=== PATIENT | female | born 1965 | race Caucasian/White ===

== ENCOUNTER 2018-06-09 17:36 | Emergency (ER) | payer MEDICARE, OTHER ==
[2018-06-09 18:50] LABS: Basophils # (A) 0.1 k/uL (0-0.2); Basophils % (A) 1 %; Eosinophils # (A) 0.3 k/uL (0-0.7); Eosinophils % (A) 5 %; HCT 40.1 % (34.0-46.0); HGB 13.2 gm/dL (11.4-16.0); Lymphocytes # (A) 2.2 k/uL (1.0-4.8); Lymphocytes % (A) 33 %; MCH 29.4 pg (25.0-35.0); MCHC 32.9 g/dL (31.0-37.0); MCV 89.1 fL (80.0-100.0); Mean Platelet Volume 9.4; Monocytes # (A) 0.6 k/uL (0-1.0); Monocytes % (A) 8 %; Neutrophils # (A) 3.3 k/uL (1.3-7.7); Neutrophils % (A) 50 %; Platelet Count 275 k/uL (150-450); RDW 13.1 % (11.5-15.5); WBC 6.7 k/uL (3.8-10.6)
[2018-06-09 18:56] LABS: ALT 141 U/L (9-52); AST 103 U/L (14-36); Albumin 4.1 g/dL (3.5-5.0); Alkaline Phosphatase 129 U/L (38-126); Anion Gap 11 mmol/L; Blood Urea Nitrogen 15 mg/dL (7-17); Calcium 9.4 mg/dL (8.4-10.2); Carbon Dioxide 25 mmol/L (22-30); Chloride 104 mmol/L (98-107); Glucose 106 mg/dL (74-99); Magnesium 1.7 mg/dL (1.6-2.3); Potassium 4.2 mmol/L (3.5-5.1); Sodium 140 mmol/L (137-145); Total Bilirubin 0.7 mg/dL (0.2-1.3); Total Protein 7.5 g/dL (6.3-8.2)
[2018-06-09 19:00] LABS: Creatine Kinase 99 U/L (30-135)
[2018-06-09 19:13] LABS: Creatine Kinase MB 1.6 ng/mL (0.0-2.4); Troponin I <0.012 ng/mL (0.000-0.034)
[2018-06-09 19:16] LABS: Partial Thromboplastin Time 21.4 sec (22.0-30.0)
[2018-06-09] MEDS ORDERED: ASPIRIN 81 MG PO STA (20:27)
--- NOTE | 2018-06-09 20:31 | ED ---
General Adult HPI - General Chief complaint: Chest Pain Stated complaint: Chest pain Time Seen by Provider: 06/09/18 19:58 Source: patient, family, RN notes reviewed Mode of arrival: ambulatory Limitations: no limitations - History of Present Illness Initial comments: Patient is a pleasant 52-year-old female presenting to the emergency Department with complaints of chest discomfort. Patient was moving boxes and other chores , mild to moderate exertion when she started expressing chest discomfort. Onset was around 4:30 and lasted around an hour. Discomfort was severe. Discomfort is now resolved. Discomfort feels like a sharp. Discomfort is central chest. There may have been some mild dyspnea. Patient was nauseated earlier which has also resolved. No diaphoresis. No history of similar symptoms previously. Patient did take a baby aspirin at home. - Related Data Home Medications Medication Instructions Recorded Confirmed Aspirin EC [Ecotrin Low Dose] 81 mg PO DAILY 06/09/18 06/09/18 Cholecalciferol [Vitamin D3] 1,000 unit PO DAILY 06/09/18 06/09/18 Cyclobenzaprine [Flexeril] 10 mg PO HS 06/09/18 06/09/18 Gabapentin [Neurontin] 300 mg PO HS 06/09/18 06/09/18 Ibuprofen [Motrin] 800 mg PO BID 06/09/18 06/09/18 Losartan-Hctz 50-12.5 mg [Hyzaar 1 tab PO DAILY 06/09/18 06/09/18 50-12.5] Multivitamins, Thera [Multivitamin 1 tab PO DAILY 06/09/18 06/09/18 (formulary)] Omeprazole 20 mg PO DAILY 06/09/18 06/09/18 Sulfamethox-Tmp 800-160Mg [Bactrim 1 tab PO Q12HR 06/09/18 06/09/18 DS 800-160 mg] Vitamin B Complex 1 cap PO DAILY 06/09/18 06/09/18 oxyCODONE-APAP 10-325MG [Percocet 1 tab PO QID PRN 06/09/18 06/09/18 10-325 mg] Allergies Allergy/AdvReac Type Severity Reaction Status Date / Time No Known Allergies Allergy Verified 06/09/18 19:16 Review of Systems ROS Statement: Those systems with pertinent positive or pertinent negative responses have been documented in the HPI. ROS Other: All systems not noted in ROS Statement are negative. Constitutional: Denies: fever Eyes: Denies: eye pain ENT: Denies: ear pain Respiratory: Reports: dyspnea Cardiovascular: Reports: chest pain Endocrine: Denies: fatigue Gastrointestinal: Denies: abdominal pain Genitourinary: Denies: dysuria Musculoskeletal: Denies: back pain Skin: Denies: rash Neurological: Denies: weakness Past Medical History Past Medical History: No Reported History, Hypertension Additional Past Medical History / Comment(s): degenerative disc. herniated disc, History of Any Multi-Drug Resistant Organisms: None Reported Past Surgical History: Appendectomy Past Psychological History: No Psychological Hx Reported Smoking Status: Never smoker Past Alcohol Use History: Rare Past Drug Use History: None Reported General Exam Limitations: no limitations General appearance: alert, in no apparent distress Head exam: Present: atraumatic Eye exam: Present: normal appearance, PERRL ENT exam: Present: normal oropharynx Neck exam: Present: normal inspection Respiratory exam: Present: normal lung sounds bilaterally. Absent: chest wall tenderness Cardiovascular Exam: Present: regular rate, normal rhythm Expanded Peripheral pulses: 2+: Radial (R), Radial (L), Dorsalis Pedis (R), Dorsalis Pedis (L) GI/Abdominal exam: Present: soft. Absent: tenderness Extremities exam: Present: normal inspection. Absent: pedal edema, calf tenderness Neurological exam: Present: alert Psychiatric exam: Present: normal affect, normal mood Skin exam: Present: normal color Course Vital Signs 06/09/18 06/09/18 06/09/18 17:59 19:43 20:38 Temperature 98.3 F Pulse Rate 100 98 84 Respiratory 18 16 16 Rate Blood Pressure 131/85 141/75 149/89 O2 Sat by Pulse 100 99 99 Oximetry 06/09/18 21:13 Temperature Pulse Rate 83 Respiratory 16 Rate Blood Pressure 112/84 O2 Sat by Pulse 96 Oximetry EKG Findings - EKG Comments: EKG Findings:: EKG shows normal sinus rhythm 99. HI 122. QRS 100. QT 360. QTC 462. Normal axis. Normal QRS. No acute ST change. Medical Decision Making - Medical Decision Making Patient reevaluated and remained symptom-free. Patient is requesting discharge. Case was discussed in detail with Dr. Luke who agrees with recommendation for admission. Patient is updated regarding this. Patient is recommended admission. Patient is explained limitations of tests results at this point. Patient does demonstrate understanding. Patient is made aware that heart attack has not been ruled out at this point as read as risk for heart attack in the near future and other disease process. Despite this patient does not want to stay in the hospital. Patient will leave AGAINST MEDICAL ADVICE. Patient is agreeable to follow-up with Dr. Luke. In addition patient is made aware of elevation of liver enzymes and need for follow -up with this as well. - Lab Data Result diagrams: 06/09/18 18:35 06/09/18 18:35 Lab Results 06/09/18 06/09/18 06/09/18 Range/Units 18:35 18:35 18:35 WBC 6.7 (3.8-10.6) k/uL RBC 4.50 (3.80-5.40) m/uL Hgb 13.2 (11.4-16.0) gm/dL Hct 40.1 (34.0-46.0) % MCV 89.1 (80.0-100.0) fL MCH 29.4 (25.0-35.0) pg MCHC 32.9 (31.0-37.0) g/dL RDW 13.1 (11.5-15.5) % Plt Count 275 (150-450) k/uL Neutrophils % 50 % Lymphocytes % 33 % Monocytes % 8 % Eosinophils % 5 % Basophils % 1 % Neutrophils # 3.3 (1.3-7.7) k/uL Lymphocytes # 2.2 (1.0-4.8) k/uL Monocytes # 0.6 (0-1.0) k/uL Eosinophils # 0.3 (0-0.7) k/uL Basophils # 0.1 (0-0.2) k/uL PT (9.0-12.0) sec INR (<1.2) APTT (22.0-30.0) sec Sodium 140 (137-145) mmol/L Potassium 4.2 (3.5-5.1) mmol/L Chloride 104 (98-107) mmol/L Carbon Dioxide 25 (22-30) mmol/L Anion Gap 11 mmol/L BUN 15 (7-17) mg/dL Creatinine 0.82 (0.52-1.04) mg/dL Est GFR (CKD-EPI)AfAm >90 (>60 ml/min/1.73 sqM) Est GFR (CKD-EPI)NonAf 83 (>60 ml/min/1.73 sqM) Glucose 106 H (74-99) mg/dL Calcium 9.4 (8.4-10.2) mg/dL Magnesium 1.7 (1.6-2.3) mg/dL Total Bilirubin 0.7 (0.2-1.3) mg/dL AST 103 H (14-36) U/L ALT 141 H (9-52) U/L Alkaline Phosphatase 129 H (38-126) U/L Total Creatine Kinase 99 (30-135) U/L CK-MB (CK-2) 1.6 (0.0-2.4) ng/mL CK-MB (CK-2) Rel Index 1.6 Troponin I <0.012 (0.000-0.034) ng/mL Total Protein 7.5 (6.3-8.2) g/dL Albumin 4.1 (3.5-5.0) g/dL 06/09/18 Range/Units 18:35 WBC (3.8-10.6) k/uL RBC (3.80-5.40) m/uL Hgb (11.4-16.0) gm/dL Hct (34.0-46.0) % MCV (80.0-100.0) fL MCH (25.0-35.0) pg MCHC (31.0-37.0) g/dL RDW (11.5-15.5) % Plt Count (150-450) k/uL Neutrophils % % Lymphocytes % % Monocytes % % Eosinophils % % Basophils % % Neutrophils # (1.3-7.7) k/uL Lymphocytes # (1.0-4.8) k/uL Monocytes # (0-1.0) k/uL Eosinophils # (0-0.7) k/uL Basophils # (0-0.2) k/uL PT 10.0 (9.0-12.0) sec INR 1.0 (<1.2) APTT 21.4 L (22.0-30.0) sec Sodium (137-145) mmol/L Potassium (3.5-5.1) mmol/L Chloride (98-107) mmol/L Carbon Dioxide (22-30) mmol/L Anion Gap mmol/L BUN (7-17) mg/dL Creatinine (0.52-1.04) mg/dL Est GFR (CKD-EPI)AfAm (>60 ml/min/1.73 sqM) Est GFR (CKD-EPI)NonAf (>60 ml/min/1.73 sqM) Glucose (74-99) mg/dL Calcium (8.4-10.2) mg/dL Magnesium (1.6-2.3) mg/dL Total Bilirubin (0.2-1.3) mg/dL AST (14-36) U/L ALT (9-52) U/L Alkaline Phosphatase (38-126) U/L Total Creatine Kinase (30-135) U/L CK-MB (CK-2) (0.0-2.4) ng/mL CK-MB (CK-2) Rel Index Troponin I (0.000-0.034) ng/mL Total Protein (6.3-8.2) g/dL Albumin (3.5-5.0) g/dL - Radiology Data Radiology results: image reviewed (Chest x-ray shows no acute process) Disposition Clinical Impression: Chest pain Disposition: Left Against Medical Advice Instructions: Chest Pain (ED) Additional Instructions: Please follow-up with Dr. Luke tomorrow. Return for increased pain, difficulty breathing, nausea, sweating, worsening or changing symptoms or other concerns. Please also have Dr. Luke follow-up regarding elevated liver enzymes. You are leaving AGAINST MEDICAL ADVICE. Aspirin daily until follow- up. Is patient prescribed a controlled substance at d/c from ED?: No Referrals: Mina Hill Jr, [Primary Care Provider] - 1-2 days Time of Disposition: 21:28
[2018-06-09 21:45] VITALS: BP 149/89; PULSE 94; RESP 18; TEMP 97.8
--- NOTE | 2018-06-09 22:24 | XR ---
EXAMINATION TYPE: XR chest 2V DATE OF EXAM: 06/09/2018 COMPARISON: NONE HISTORY: Chest pain TECHNIQUE: Frontal and lateral views of the chest are obtained. FINDINGS: Heart and mediastinum are normal. Lungs are clear. Diaphragm is normal. Bony thorax is int act. Pulmonary vascularity is normal. IMPRESSION: Normal chest. Normal heart.
== END 2018-06-09 21:37 | disposition left against medical advice (07) ==
LOC: EC 17:36
DX: R07.9 Chest pain, unspecified (principal); R06.00 Dyspnea, unspecified; I10 Essential (primary) hypertension; Z53.29 Procedure and treatment not carried out because of patient's decision for other reasons; Z79.1 Long term (current) use of non-steroidal anti-inflammatories (NSAID); Z79.82 Long term (current) use of aspirin; Z79.899 Other long term (current) drug therapy
CPT/HCPCS: 36415; 71046; 80053; 82550; 82553; 83735; 84484; 85025; 85610; 85730; 93005; 99285

== ENCOUNTER → 2019-05-27 | Outpatient (CLI) | payer MEDICARE ==
--- NOTE | 2019-06-04 11:04 | MM ---
Reason for exam: screening (asymptomatic). History: Family history of breast cancer in paternal aunt. Took hormonal contraceptives for 2 years. Physical Findings: A clinical breast exam by your physician is recommended on an annual basis and results should be correlated with mammographic findings. MG Screening Mammo w CAD Bilateral CC and MLO view(s) were taken. There are scattered fibroglandular densities. There is no discrete abnormality. No significant changes when compared with prior studies. ASSESSMENT: Negative, BI-RAD 1 RECOMMENDATION: Routine screening mammogram of both breasts in 1 year.
== END | disposition home or self-care (01) ==
LOC: RADMAMWWP 09:21
PROVIDERS: ATTEND Family Medicine
DX: Z12.31 Encounter for screening mammogram for malignant neoplasm of breast (principal)
CPT/HCPCS: 77067

== ENCOUNTER → 2020-07-10 | Outpatient (CLI) | payer MEDICARE ==
--- NOTE | 2020-07-10 11:56 | US ---
EXAMINATION TYPE: US abdomen complete DATE OF EXAM: 07/10/2020 COMPARISON: NONE CLINICAL HISTORY: R19.01 Mass. Patient feels palpable area mid right abdomen that is painful. EXAM MEASUREMENTS: Liver Length: 15.3 cm Gallbladder Wall: 0.2 cm CBD: 0.3 cm Spleen: 11.4 cm Right Kidney: 11.3 x 4.9 x 5.3 cm Left Kidney: 11.9 x 5.0 x 5.8 cm Pancreas: visualized portions wnl Liver: difficult to penetrate Gallbladder: several large stones with shadowing Evidence for sonographic Lamar's sign: Yes CBD: wnl Spleen: wnl Right Kidney: No hydronephrosis or masses seen Left Kidney: No hydronephrosis or masses seen Upper IVC: wnl Abd Aorta: wnl Scanning was performed directly over area of palpable, to the right of midline as pointed out by lizbeth ent. Superficial scanning did not demonstrate any abnormality. Deeper scanning showed this is directl y over gallbladder. The visualized liver is heterogeneously hyperechoic. Evaluation for focal masses suboptimal due to th e heterogeneity. The intrahepatic portion of the IVC and visualized abdominal aorta are within normal limits. A few larger mobile shadowing gallstones noted within gallbladder lumen. No pericholecystic fluid or abnormal gallbladder wall thickening. Common bile duct is unremarkable. The visualized port ions of the pancreas are homogenous. The spleen is unremarkable. Kidneys are symmetric and free of hydronephrosis. No renal lesions are seen on images saved. IMPRESSION: Heterogeneous hyperechoic appearance of liver could be on basis of diffuse fatty infiltra tion and/or underlying hepatocellular disease. Gallstones without secondary ultrasound evidence for a cute cholecystitis. No concerning solid cystic mass or fluid collection in the superficial anterior r ight mid abdomen. If concern for focal mass persist further investigation with contrast-enhanced CT w ould be warranted.
== END | disposition home or self-care (01) ==
LOC: RADUSWWP 10:14
PROVIDERS: ATTEND Nurse Practitioner Women's Health
DX: R93.2 Abnormal findings on diagnostic imaging of liver and biliary tract (principal); K80.20 Calculus of gallbladder without cholecystitis without obstruction
CPT/HCPCS: 76700

== ENCOUNTER → 2020-09-20 | Outpatient (CLI) | payer MEDICARE ==
--- NOTE | 2020-09-22 11:52 | MM ---
Reason for exam: screening (asymptomatic). Last mammogram was performed 1 year and 4 months ago. History: Patient is postmenopausal. Family history of breast cancer in paternal aunt. Took hormonal contraceptives for 2 years. Physical Findings: A clinical breast exam by your physician is recommended on an annual basis and results should be correlated with mammographic findings. MG 3D Screening Mammo W/Cad Bilateral CC and MLO view(s) were taken. Prior study comparison: May 27, 2019, bilateral MG screening mammo w CAD. There are scattered fibroglandular densities. Dermal calcifications posteriorly on the left. No significant changes when compared with prior studies. ASSESSMENT: Incomplete: need additional imaging evaluation, BI-RAD 0 RECOMMENDATION: Ultrasound of the left breast. (palpable site) [facility] will attempt to contact patient to return for ultrasound.
== END | disposition home or self-care (01) ==
LOC: RADMAMWWP 16:19
PROVIDERS: ATTEND Family Medicine
DX: Z12.31 Encounter for screening mammogram for malignant neoplasm of breast (principal); Z80.3 Family history of malignant neoplasm of breast
CPT/HCPCS: 77063; 77067

== ENCOUNTER → 2020-10-10 | Outpatient (CLI) | payer MEDICARE ==
--- NOTE | 2020-10-11 11:01 | USB ---
Reason for exam: additional evaluation requested from abnormal screening. History: Patient is postmenopausal. Family history of breast cancer in paternal aunt. Took hormonal contraceptives for 2 years. Physical Findings: Nurse did not find any significant physical abnormalities on exam. US Breast Workup Limited LT Left limited breast ultrasound including focal area of concern, retroareolar and axilla demonstrates no cystic or solid lesion seen. Scanned 3-6 o'clock. Patient no longer to appreciate a palpable abnormality. These results were verbally communicated with the patient and result sheet given to the patient on 10/10/20. ASSESSMENT: Benign, BI-RAD 2 RECOMMENDATION: Return to routine screening mammogram schedule for both breasts. Manage on a clinical basis with regard to breast tenderness.
== END | disposition home or self-care (01) ==
LOC: RADUSWWP 13:55
PROVIDERS: ATTEND Family Medicine
DX: R92.8 Other abnormal and inconclusive findings on diagnostic imaging of breast (principal); Z78.0 Asymptomatic menopausal state; Z80.3 Family history of malignant neoplasm of breast